=== PATIENT | female | born 1985 ===

== ENCOUNTER 2018-08-14 00:23 | Emergency (ER) | payer MEDICAID ==
[2018-08-14] MEDS ORDERED: ONDANSETRON HCL IV 4 MG/2 ML VIAL IV ONE (00:36)
[2018-08-14] MEDS ORDERED: 0.9 % SODIUM CHLORIDE 1,000 ML BAG IV ONE (00:36)
[2018-08-14] MEDS ORDERED: KETOROLAC 30 MG/ML VIAL IVP ONE (00:36)
[2018-08-14 00:46] LABS: HEMOGLOBIN 15.9 gm/dl (11.6-16.0); MEAN CELL VOLUME 87.8 fl (81-97); MEAN CORPUSCULAR HGB CONC 33.1 g/dl (32-36); MEAN PLATELET VOLUME 10.5 fl (7.4-10.4); PLATELET COUNT 257 K/uL (130-400); RED BLOOD COUNT 5.47 M/uL (3.80-5.40); RED CELL DISTRIBUTION WIDTH 13.5 % (11.5-14.5)
[2018-08-14 01:06] LABS: BLOOD UREA NITROGEN 7 mg/dL (6-20); CREATININE 0.7 mg/dL (0.5-0.9); EST GLOMERULAR FILTRATION RATE > 60 mL/min; TOTAL PROTEIN 7.4 g/dL (6.6-8.7)
[2018-08-14 01:08] LABS: GLUCOSE,RANDOM 105 mg/dL (74-109)
[2018-08-14 01:11] LABS: ALB/GLOB RATIO 1.3 (1.1-1.8); ALBUMIN 4.2 g/dL (4.0-5.0); ALKALINE PHOSPHATASE 64 U/L (45-87); ALT/SGPT 24 U/L (<33); AST/SGOT 24 U/L (10.0-35.0); LIPASE 37 U/L (13-60)
[2018-08-14 01:21] LABS: PLATELET ESTIMATE NORMAL (NORMAL)
--- NOTE | 2018-08-14 02:03 | Emergency Department Record ---
History of Present Illness - General Chief Complaint: Abdominal Pain Stated Complaint: N/V/D/ABD PAIN Time Seen by Provider: 08/14/18 00:35 Source: Patient Mode of Arrival: Ambulatory Limitations: No limitations - History of Present Illness Initial Comments: pt has had ap since being in [facility] a month ago. she has decreased appetite and discomfort w eating. she has a 7 lb wt loss. she has nausea and constipation but today she had diarrhea. she has a feeling of fullness when she eats that goes up into her chest Onset/Timin -: Week(s) Location: Epigastric, LUQ Radiation: Epigastric Migration to: No migration Severity: Moderate Severity scale (1-10): 6 Quality: Sharp Consistency: Constant Improves With: Nothing Worsens With: Nothing Associated Symptoms: Diarrhea, Nausea, Vomiting - Related Data LMP (females 10-50): 3 weeks ago Patient : No Home Medications Medication Instructions Recorded Confirmed Last Taken Dextroamphetamine/Amphetamine 10 mg PO QAM 08/14/18 08/14/18 08/11/18 [Adderall Xr 10 mg Capsule] Dextroamphetamine/Amphetamine 15 mg PO QPM 08/14/18 08/14/18 08/11/18 [Adderall Xr] Allergies Allergy/AdvReac Type Severity Reaction Status Date / Time No Known Drug Allergies Allergy Verified 06/22/14 16:34 Travel Screening - Travel/Exposure Within Last 30 Days Have you traveled within the last 30 days?: Yes Location Detail:: [facility] - Travel/Exposure Within Last Year Have you traveled outside the [place] in the last year?: No - Travel Symptoms Symptom Screening: Weakness, Diarrhea, Vomiting, Stomach Pain Review of Systems Reviewed: No additional complaints except as noted below Constitutional: Reports: As per HPI. Denies: Chills, Fever, Malaise, Night sweats, Weakness, Weight change Eyes: Reports: As per HPI. Denies: Eye discharge, Eye pain, Photophobia, Vision change ENT: Reports: As per HPI. Denies: Congestion, Dental pain, Ear pain, Epistaxis , Hearing loss, Throat pain Respiratory: Reports: As per HPI. Denies: Cough, Dyspnea, Hemoptysis, Stridor, Wheezes Cardiovascular: Reports: As per HPI. Denies: Arrhythmia, Chest pain, Dyspnea on exertion, Edema, Murmurs, Orthopnea, Palpitations, Paroxysmal nocturnal dyspnea, Rheumatic Fever, Syncope Endocrine: Reports: As per HPI. Denies: Fatigue, Heat or cold intolerance, Polydipsia, Polyuria Gastrointestinal: Reports: As per HPI, Abdominal pain, Constipation, Diarrhea, Nausea, Vomiting. Denies: Hematemesis, Hematochezia, Melena Genitourinary: Reports: As per HPI. Denies: Abnormal menses, Discharge, Dyspareunia, Dysuria, Frequency, Hematuria, Incontinence, Retention, Urgency Musculoskeletal: Reports: As per HPI. Denies: Arthralgia, Back pain, Gout, Joint swelling, Myalgia, Neck pain Skin: Reports: As per HPI. Denies: Bruising, Change in color, Change in hair/ nails, Lesions, Pruritus, Rash Neurological: Reports: As per HPI. Denies: Abnormal gait, Confusion, Headache, Numbness, Paresthesias, Seizure, Tingling, Tremors, Vertigo, Weakness Psychiatric: Reports: As per HPI. Denies: Anxiety, Auditory hallucinations, Depression, Homicidal thoughts, Suicidal thoughts, Visual hallucinations Hematological/Lymphatic: Reports: As per HPI. Denies: Anemia, Blood Clots, Easy bleeding, Easy bruising, Swollen glands Past Medical History - SOCIAL HISTORY Smoking Status: Never smoker Alcohol Use: None Drug Use: None - RESPIRATORY Hx Respiratory Disorders: No - CARDIOVASCULAR Hx Cardio Disorders: No - NEURO Hx Neuro Disorders: No - GI Hx GI Disorders: No - Hx Genitourinary Disorders: No - ENDOCRINE Hx Endocrine Disorders: No - MUSCULOSKELETAL Hx Musculoskeletal Disorders: No - PSYCH Hx Psych Problems: No - HEMATOLOGY/ONCOLOGY Hx Hematology/Oncology Disorders: No Family Medical History Any Significant Family History?: No Family Hx Comment (NOT TO BE USED IN PLACE OF ITEMS BELOW): denies Physical Exam - General General Appearance: Alert, Oriented x3, Cooperative, Mild distress - Head Head exam: Normal inspection - Eye Eye exam: Normal appearance, PERRL, EOMI Pupils: Normal accommodation - ENT ENT exam: Normal exam, Mucous membranes moist, Normal external ear exam, Normal orophraynx, TM's normal bilaterally Ear exam: Normal external inspection. negative: External canal tenderness Nasal Exam: Normal inspection. negative: Discharge, Sinus tenderness Mouth exam: Normal external inspection, Tongue normal Teeth exam: Normal inspection. negative: Dental caries Throat exam: Normal inspection. negative: Tonsillar erythema, Tonsillar exudate - Neck Neck exam: Normal inspection, Full ROM. negative: Tenderness - Respiratory Respiratory exam: Normal lung sounds bilaterally. negative: Respiratory distress - Cardiovascular Cardiovascular Exam: Regular rate, Normal rhythm, Normal heart sounds - GI/Abdominal GI/Abdominal exam: Soft, Normal bowel sounds, Tenderness - Rectal Rectal exam: Deferred - exam: Deferred - Extremities Extremities exam: Normal inspection, Full ROM, Normal capillary refill. negative: Tenderness - Back Back exam: Reports: Normal inspection, Full ROM. Denies: Muscle spasm, Rash noted, Tenderness - Neurological Neurological exam: Alert, Normal gait, Oriented X3, Reflexes normal - Psychiatric Psychiatric exam: Normal affect, Normal mood - Skin Skin exam: Dry, Intact, Normal color, Warm Course Vital Signs 08/14/18 00:32 Temperature 98.3 F Pulse Rate 85 Respiratory 18 Rate Blood Pressure 111/74 Pulse Ox 97 neg - Reevaluation(s) Reevaluation #1: 08/14/18 03:17 ct neg Medical Decision Making - Lab Data Result diagrams: 08/14/18 00:40 08/14/18 00:40 Lab Results 08/14/18 08/14/18 08/14/18 Range/Units 00:40 00:40 00:40 WBC 6.0 (4.2-12.2) K/uL RBC 5.47 H (3.80-5.40) M/uL Hgb 15.9 (11.6-16.0) gm/dl Hct 48.0 H (35.0-47.0) % MCV 87.8 (81-97) fl MCH 29.0 (27-33) pg MCHC 33.1 (32-36) g/dl RDW 13.5 (11.5-14.5) % Plt Count 257 (130-400) K/uL MPV 10.5 H (7.4-10.4) fl Neutrophils % 48.0 (47-80) % Band Neutrophils % 1.0 (0-5) % Eosinophils % Not Reportable Basophils % Not Reportable Lymphocytes 36.0 (16-45) % Monocytes 15.0 H (0-9) % Platelet Estimate Normal (NORMAL) RBC Morphology Normal Sodium 138 (136-145) mmol/L Potassium 4.0 (3.4-4.5) mmol/L Chloride 101 (98-107) mmol/L Carbon Dioxide 22.0 (22-29) mmol/L Anion Gap 15.0 (7-16) BUN 7 (6-20) mg/dL Creatinine 0.7 (0.5-0.9) mg/dL Estimated GFR > 60 mL/min Random Glucose 105 (74-109) mg/dL Calcium 8.6 (8.6-10.0) mg/dL Total Bilirubin 0.20 (0.2-1.0) mg/dL AST 24 (10.0-35.0) U/L ALT 24 (<33) U/L Alkaline Phosphatase 64 (45-87) U/L Total Protein 7.4 (6.6-8.7) g/dL Albumin 4.2 (4.0-5.0) g/dL Globulin 3.2 (1.4-4.8) gm/dL Albumin/Globulin Ratio 1.3 (1.1-1.8) Lipase 37 (13-60) U/L Serum HCG, Qual Negative (NEGATIVE) Disposition Disposition: Discharge Clinical Impression: Abdominal pain Qualifiers: Abdominal location: upper abdomen, unspecified Qualified Code(s): R10.10 - Upper abdominal pain, unspecified Disposition: Home, Self-Care Condition: (1) Good Instructions: Abdominal Pain (ED) Additional Instructions: follow up with family doctor and GI doctor. return sooner if worse Quality - Quality Measures Quality Measures: N/A - Blood Pressure Screening Does Patient Have Any of the Following: No Blood Pressure Classification: Normal BP Reading Systolic Measurement: 111 Diastolic Measurement: 74 Screening for High Blood Pressure: < Normal BP, F/U Not Required > [G8783]
[2018-08-14] MEDS ORDERED: MAGNESIUM HYDROXIDE/AL HYDROX 30 ML, LIDOCAINE VISC 2% 15ML 15 ML PO ONE ×2 (02:12)
[2018-08-14 02:19] LABS: URINE APPEARANCE CLEAR; URINE BILIRUBIN NEGATIVE (NEGATIVE); URINE BLOOD SMALL (NEGATIVE); URINE COLOR YELLOW; URINE GLUCOSE (UA) NEGATIVE (NEGATIVE); URINE KETONE NEGATIVE (NEGATIVE); URINE LEUKOCYTE ESTERASE NEGATIVE (NEGATIVE); URINE NITRITE NEGATIVE (NEGATIVE); URINE PROTEIN NEGATIVE (NEGATIVE); URINE UROBILINOGEN 0.2 E.U./dL (0.20 - 1.00)
[2018-08-14] MEDS ORDERED: ONDANSETRON HCL IV 4 MG/2 ML VIAL IVP ONE (03:18)
--- NOTE | 2018-08-15 19:00 | CT SCAN REPORT ---
EXAM: CT SCAN ABDOMEN/PELVIS WO CONTRAST HISTORY: ABDOMINAL PAIN FOR THREE DAYS. TECHNIQUE: Noncontrast CT abdomen and pelvis. COMPARISON: None. FINDINGS: Partially visualized breast implants. Lung bases are clear. Unremarkable noncontrast CT appearance of the liver, adrenal glands, pancreas, spleen, and gallbladder. No hydronephrosis. No renal or ureteral calculi are detected. Unremarkable appearance of the urinary bladder. No focal colonic thickening or inflammatory changes are seen. The appendix appears normal. Stomach and small bowel appear nondilated. No appreciable mesenteric adenopathy. No free air or significant free fluid. No significant intrapelvic abnormalities are detected. Abdominal aorta appears nondilated. No acute osseous findings. IMPRESSION: NO ACUTE ABNORMALITIES IDENTIFIED IN THE ABDOMEN OR PELVIS. A preliminary report was provided by the [facility]. JOB NUMBER: [id number] MTDD
== END 2018-08-14 03:20 | disposition home or self-care (01) ==
LOC: ER 00:23
DX: R10.10 Upper abdominal pain, unspecified (principal); R11.2 Nausea with vomiting, unspecified; R19.7 Diarrhea, unspecified
CPT/HCPCS: 99284 ×2; 96374; 96375; 96361; 83690; 80053; 81003; 84703; 85027; 74176; J1885; J2405; J7030

== ENCOUNTER 2019-06-09 23:14 | Emergency (ER) | payer MEDICAID ==
--- NOTE | 2019-06-09 23:38 | Emergency Department Record ---
History of Present Illness - General Chief complaint: ENT Stated complaint: SORE THROAT,SOB Time Seen by Provider: 06/09/19 23:17 Source: Patient Mode of Arrival: Ambulatory - History of Present Illness Initial comments: The patient just returned from a [employer] in [place] this past 06-05-19. She began having a sore throat then. Thursday she developed a hoarse vo ice. Thursday she had nausea vomiting and diarrhea, and she developed a dark green brown productive cough. She has not had any known fever, rashes, abdominal pain, calf tenderness, or current shortness of breath. She has a history of pneumonia. She is a former smoker who has been vaping for about 3 months. She is on control and is not sexually active. She is concerned about pneumonia again and wishes an xray. Onset/Timin -: Days(s) Severity scale (1-10): 3 Quality: Aching Consistency: Intermittent Improves with: NSAID Worsens with: None Associated Symptoms: Cough, Pain with swallowing, Sore throat - Related Data Allergies Allergy/AdvReac Type Severity Reaction Status Date / Time No Known Drug Allergies Allergy Verified 06/22/14 16:34 Travel Screening - Travel/Exposure Within Last 30 Days Have you traveled within the last 30 days?: Yes Location Detail:: [place] - Travel/Exposure Within Last Year Have you traveled outside the [place] in the last year?: No - Additonal Travel Details Have you been exposed to anyone with a communicable illness?: No - Travel Symptoms Symptom Screening: None Review of Systems Reviewed: No additional complaints except as noted below Constitutional: Reports: As per HPI. Denies: Chills, Fever, Malaise, Night sweats, Weakness, Weight change Eyes: Reports: As per HPI. Denies: Eye discharge, Eye pain, Photophobia, Vision change ENT: Reports: As per HPI. Denies: Congestion, Dental pain, Ear pain, Epistaxis, Hearing loss, Throat pain Respiratory: Reports: As per HPI. Denies: Cough, Dyspnea, Hemoptysis, Stridor, Wheezes Cardiovascular: Reports: As per HPI. Denies: Arrhythmia, Chest pain, Dyspnea on exertion, Edema, Murmurs, Orthopnea, Palpitations, Paroxysmal nocturnal dyspnea, Rheumatic Fever, Syncope Endocrine: Reports: As per HPI. Denies: Fatigue, Heat or cold intolerance, Polydipsia, Polyuria Gastrointestinal: Reports: As per HPI. Denies: Abdominal pain, Constipation, Diarrhea, Hematemesis, Hematochezia, Melena, Nausea, Vomiting Genitourinary: Reports: As per HPI. Denies: Abnormal menses, Discharge, Dyspareunia, Dysuria, Frequency, Hematuria, Incontinence, Retention, Urgency Musculoskeletal: Reports: As per HPI. Denies: Arthralgia, Back pain, Gout, Joint swelling, Myalgia, Neck pain Skin: Reports: As per HPI. Denies: Bruising, Change in color, Change in hair/nails, Lesions, Pruritus, Rash Neurological: Reports: As per HPI. Denies: Abnormal gait, Confusion, Headache, Numbness, Paresthesias, Seizure, Tingling, Tremors, Vertigo, Weakness Psychiatric: Reports: As per HPI. Denies: Anxiety, Auditory hallucinations, Depression, Homicidal thoughts, Suicidal thoughts, Visual hallucinations Hematological/Lymphatic: Reports: As per HPI. Denies: Anemia, Blood Clots, Easy bleeding, Easy bruising, Swollen glands Past Medical History - SOCIAL HISTORY Smoking Status: Former smoker Alcohol Use: Occasional Drug Use: None Drug Use Comment:: vapes - RESPIRATORY Hx Respiratory Disorders: Yes Hx Pneumonia: Yes (2018) - CARDIOVASCULAR Hx Cardio Disorders: Yes Hx Irregular Heartbeat: Yes (a-fib) - NEURO Hx Neuro Disorders: No - GI Hx GI Disorders: No - Hx Genitourinary Disorders: No - ENDOCRINE Hx Endocrine Disorders: No - MUSCULOSKELETAL Hx Musculoskeletal Disorders: No - PSYCH Hx Psych Problems: Yes Hx Anxiety: Yes Hx Depression: Yes - HEMATOLOGY/ONCOLOGY Hx Hematology/Oncology Disorders: No Family Medical History Any Significant Family History?: No Family Hx Comment (NOT TO BE USED IN PLACE OF ITEMS BELOW): denies Physical Exam - General General Appearance: Alert, Oriented x3, Cooperative, Mild distress (voice is very hoarse, no stridor or drooling) - Head Head exam: Normal inspection - Eye Eye exam: Normal appearance, PERRL, EOMI. negative: Conjunctival injection, Nystagmus, Scleral icterus Pupils: Normal accommodation - ENT ENT exam: Normal exam, Mucous membranes moist, Normal external ear exam, Normal orophraynx, TM's normal bilaterally Ear exam: Normal external inspection. negative: External canal tenderness Nasal Exam: Normal inspection. negative: Discharge, Sinus tenderness Mouth exam: Normal external inspection, Tongue normal Teeth exam: Normal inspection. negative: Dental caries Throat exam: Normal inspection, Tonsillar erythema. negative: Tonsillomegaly, Tonsillar exudate - Neck Neck exam: Normal inspection, Full ROM, Other (subandibular soreness on palpation without lymphadenopathy). negative: Lymphadenopathy, Meningismus, Tenderness - Respiratory Respiratory exam: Normal lung sounds bilaterally. negative: Accessory muscle use, Chest wall tenderness, Decreased breath sounds, Prolonged expiratory, Rales, Respiratory distress, Rhonchi, Stridor, Wheezes - Cardiovascular Cardiovascular Exam: Regular rate, Normal rhythm, Normal heart sounds - GI/Abdominal GI/Abdominal exam: Soft, Normal bowel sounds. negative: Tenderness - Rectal Rectal exam: Deferred - exam: Deferred - Extremities Extremities exam: Normal inspection, Full ROM, Normal capillary refill. negative: Tenderness - Back Back exam: Reports: Normal inspection, Full ROM. Denies: CVA tenderness (R), CVA tenderness (L), Muscle spasm, Rash noted, Tenderness - Neurological Neurological exam: Alert, CN II-XII intact, Normal gait, Oriented X3, Reflexes normal. negative: Motor sensory deficit - Psychiatric Psychiatric exam: Normal affect, Normal mood - Skin Skin exam: Dry, Intact, Normal color, Warm. negative: Rash Course - Reevaluation(s) Reevaluation #1: Results discussed, all questions answered. Patient is ready for DC. 06/10/19 00:21 Medical Decision Making - Management Options MDM Management: No Additional Work-up Planned - Data Complexity MDM Data: Labs Ordered and/or Reviewed (Rapid Strep: negative), X-Ray Ordered and/or Reviewed (CXR two view: Neg per radiologist.) Disposition Disposition: Discharge Clinical Impression: Acute viral bronchitis, Acute viral pharyngitis Disposition: Home, Self-Care Condition: (1) Good Instructions: Viral Pneumonia (ED), Pharyngitis (ED), Acute Bronchitis (ED), Viral Syndrome (ED) Additional Instructions: Home, rest. Push fluids. Tylenol alternated with ibuprofen as needed as directed for fevers and/or pain. Throat sprays and throat lozenges as needed for throat discomfort. Bedside vaporizer as needed. PCP follow up if not improving. Quality - Quality Measures Quality Measures: Adult Bronchitis (18-64yr) - Adult Bronchitis Quality Measure: Measure #116: Avoidance of ABX w/Adult Bronchitis ICD10 Codes Entered: Yes Is patient being admitted: No Avoidance of ABX w/Bronchitis: <ABX neither prescribed nor dispensed> [4124F] - Blood Pressure Screening Does Patient Have Any of the Following: No Blood Pressure Classification: Pre-Hypertensive BP Reading Systolic Measurement: 140 Diastolic Measurement: 84 Screening for High Blood Pressure: < Pre-Hypertensive BP, F/U Documented > [G8950] Pre-Hypertensive Follow-up Interventions: Follow-up with rescreen every year., Lifestyle modifications. Lifestyle Modification: Dietary Approaches to Stop Hypertension (DASH) Eating Plan, Dietary Sodium Restriction, Increased Physical Activity, Moderation in alcohol (ETOH) consumption
[2019-06-09] MEDS ORDERED: METHYLPREDNISOLONE PF 125MG/VIAL IM ONE (23:41)
--- NOTE | 2019-06-10 00:12 | RADIOLOGY REPORT ---
EXAMINATION: Two View Chest Radiographs EXAM DATE: 06/10/2019 12:06 AM TECHNIQUE: Frontal and lateral views INDICATION: green brown productive cough; hx pneumonia, smoker COMPARISON: None ENCOUNTER: Not applicable FINDINGS: The heart, mediastinum, and pulmonary vasculature are normal. No lung consolidation or pleural effu sions are present. IMPRESSION: No acute pulmonary disease process Dictated by: Yany Townsend DO on 06/10/2019 12:09 AM. .
== END 2019-06-10 00:34 | disposition home or self-care (01) ==
LOC: ER 23:14
DX: J20.8 Acute bronchitis due to other specified organisms (principal); J02.8 Acute pharyngitis due to other specified organisms; R06.02 Shortness of breath; R13.10 Dysphagia, unspecified; Z87.891 Personal history of nicotine dependence
CPT/HCPCS: 71046; 87880; 96372; 99284; J2930